=== PATIENT | female | born 2000 | race African-American/Black ===

== ENCOUNTER 2023-12-20 11:31 | Emergency (ER) | payer OTHER ==
[~2023-12-20] VITALS: Ht 152.4 cm; Wt 58.5 kg
[2023-12-20 12:45] LABS: URINE PREG TEST NEGATIVE (NEGATIVE)
[2023-12-20 14:13] VITALS: BP 118/70; TEMP 96.5; O2SAT 100
== END 2023-12-20 14:14 | disposition home or self-care (01) ==
LOC: M ED 11:31
DX: Z32.02 Encounter for pregnancy test, result negative (principal)

== ENCOUNTER 2024-06-11 09:10 | Emergency (ER) | payer OTHER ==
[~2024-06-11] VITALS: Ht 152.4 cm; Wt 54.4 kg
[2024-06-11 12:04] VITALS: BP 106/61; TEMP 98; O2SAT 98
[2024-06-11] MEDS ORDERED: BENZ200C70 PO (13:03)
[2024-06-11] MEDS ORDERED: VENTAER INH (13:03)
[2024-06-11] MEDS ORDERED: IBUP-1022 PO (13:03)
== END 2024-06-11 13:14 | disposition home or self-care (01) ==
LOC: M ED 09:10
DX: R05.9 Cough, unspecified (principal); B34.1 Enterovirus infection, unspecified; Z79.51 Long term (current) use of inhaled steroids; Z79.1 Long term (current) use of non-steroidal anti-inflammatories (NSAID)

== ENCOUNTER → 2025-08-11 | Outpatient (CLI) | payer OTHER ==
[~2025-08-11] MED LIST: BENZ200C70 PO; DOXY-441 PO; IBUP600T42 PO; ONDA-282 PO; VENTAER INH
== END ==
LOC: M CARPUL 12:30
DX: J45.20 Mild intermittent asthma, uncomplicated (principal)

== ENCOUNTER 2025-08-12 08:19 | Emergency (ER) | payer OTHER ==
[~2025-08-12] VITALS: Ht 152.4 cm; Wt 55.0 kg
[~2025-08-12 08:19] MED LIST changes: -DOXY-441 PO; -ONDA-282 PO
[2025-08-12 09:03] LABS: BASO # 0.1 10^3/uL (0.0-0.2); BASO % 1.1 % (0.0-1.0); EOS # 0.0 10^3/uL (0.0-0.5); EOS % 0.9 % (0.0-3.0); LYMPH # 1.7 10^3/uL (1.5-5.0); LYMPH % 38.4 % (24.0-44.0); MONO # 0.3 10^3/uL (0.0-0.8); MONO % 6.4 % (2.0-8.0); NEUTROPHILS # 2.3 10^3/uL (1.5-8.5); NEUTROPHILS % 53.2 % (36.0-66.0); PLATELET COUNT, AUTOMATED 323 10^3/uL (150-450)
[2025-08-12 09:43] LABS: ALT/SGPT 23 U/L (7.0-40); AST/SGOT 16 U/L (<34); CALCIUM LEVEL 8.9 MG/DL (8.5-10.1); CARBON DIOXIDE LEVEL 27 MMOL/L (20-31); CHLORIDE LEVEL 105 MMOL/L (98-107); CREATININE FOR GFR 0.69 MG/DL (0.55-1.30); GLOMERULAR FILTRATION RATE > 90.0 (>60); POTASSIUM SERUM 4.2 MMOL/L (3.5-5.1); SODIUM LEVEL 140 MMOL/L (136-145)
[2025-08-12 10:08] LABS: HIV 1&2 SCREEN NEGATIVE (NEGATIVE)
[2025-08-12 10:09] LABS: HCG, SERUM QUALITATIVE NEGATIVE (NEGATIVE)
[2025-08-12] MEDS ORDERED: ISOVUE-370 76% 100 ML VIAL As Ordered ONE (10:14)
[2025-08-12] MEDS: ONDANSETRON 4MG/2ML VIAL IV ONE (10:42)
[2025-08-12] MEDS: NS (Normal Saline) 0.9% 1,000 ML IV SCH (10:42)
[2025-08-12 10:59] LABS: KETONE, URINE AUTO RFX NEGATIVE (NEGATIVE); MUCUS, URINE RFX SMALL (NEGATIVE); NITRITE, URINE AUTO RFX NEGATIVE (NEGATIVE); RBC, URINE AUTO RFX 1 /HPF (0-3); SQUAM EPITHELIAL CELL UR AURFX 7 /HPF (0-6); WBC, URINE AUTO RFX 8 /HPF (0-3)
[2025-08-12 11:00] LABS: LEUKOCYTE ESTERASE UR AUTO RFX TRACE (NEGATIVE)
[2025-08-12 12:33] LABS: Trichomonas vaginalis (AMP) NOT DETECTED (NEGATIVE)
[2025-08-12 12:56] LABS: GC DNA AMPLIFICATION NEGATIVE (NEGATIVE)
[2025-08-12] MEDS ORDERED: ONDA-282 PO (13:54)
[2025-08-12] MEDS ORDERED: DOXY-441 PO (13:54)
[2025-08-12] MEDS: DOXYCYCLINE HYCLATE 100 MG TABLET PO ONE (13:55)
[2025-08-12 13:58] VITALS: BP 100/58; TEMP 97; O2SAT 96
== END 2025-08-12 14:03 | disposition home or self-care (01) ==
LOC: M ED 08:19
DX: K29.00 Acute gastritis without bleeding (principal); A74.9 Chlamydial infection, unspecified; R11.2 Nausea with vomiting, unspecified; R19.7 Diarrhea, unspecified; R94.31 Abnormal electrocardiogram [ECG] [EKG]; F17.290 Nicotine dependence, other tobacco product, uncomplicated; F10.10 Alcohol abuse, uncomplicated; Z79.51 Long term (current) use of inhaled steroids; Z79.1 Long term (current) use of non-steroidal anti-inflammatories (NSAID); Z79.2 Long term (current) use of antibiotics; Z79.899 Other long term (current) drug therapy
CPT/HCPCS: 74177; 80053; 81001; 83690; 84703; 85025; 86780; 87086; 87210; 87389; 87661; 87810; 87850; 93005; 96361; 96374; 99284; J2405; Q9967